=== PATIENT | male | born 1995 | race African-American/Black ===

== ENCOUNTER 2016-12-20 11:59 | Emergency (ER) | payer BC ==
[~2016-12-20] VITALS: Ht 175.3 cm; Wt 72.7 kg
[2016-12-20 12:02] VITALS: TEMP 98
[2016-12-20 12:50] LABS: BASO % 0.3 % (0.0-2.0); EOS # 0.1 (0.0-0.7); EOS % 0.7 % (0-4.0); GRAN # 4.9 (1.4-6.5); GRAN % 69.4 % (42.2-75.2); HEMATOCRIT 41.7 % (42.0-52.0); HEMOGLOBIN 13.2 g/dl (13.5-18.0); LYMPH # 1.4 (1.2-3.4); LYMPH % 19.7 % (20.0-51.0); MEAN CELL VOLUME 62 fl (80.0-100.0); MEAN CORPUSCULAR HEMOGLOBIN 20 pg (27.0-31.0); MEAN CORPUSCULAR HGB CONC 32 g/dl (33.0-37.0); MEAN PLATELET VOLUME 10.6 fl (7.4-10.4); MONO # 0.7 (0.1-0.6); MONO % 9.6 % (1.7-9.3); PLATELET COUNT 268 K/mm3 (130-400); RED BLOOD COUNT 6.76 M/mm3 (4.20-5.60); REDCELL DISTRIBUTION WIDTH-CV 17.8 % (11.5-14.5)
[2016-12-20 13:08] LABS: ADJUSTED CALCIUM 8.8 mg/dL (8.4-10.2); ALBUMIN 4.8 gm/dL (3.5-5.0); BILIRUBIN,TOTAL 1.4 mg/dL (0.0-1.0); CALCIUM 9.4 mg/dL (8.4-10.2); CREATININE, serum 1.06 mg/dL (0.66-1.25); POTASSIUM 3.4 mmol/L (3.4-5.0); TOTAL PROTEIN 8.1 gm/dL (6.4-8.2)
[2016-12-20 13:23] LABS: PROLACTIN 10.4 ng/mL (3.7-17.9)
[2016-12-20 13:50] VITALS: BP 140/89; PULSE 50
== END 2016-12-20 13:51 | disposition home or self-care (01) ==
LOC: COL.ER 11:59
PROVIDERS: Emergency Medicine
DX: R56.9 Unspecified convulsions (principal)
CPT/HCPCS: J7030